=== PATIENT | male | born 1965 | race Caucasian/White ===

== ENCOUNTER → 2016-06-10 | Outpatient (CLI) | payer OTHER ==
[~2016-06-10] MED LIST: AMLO5TAB22 PO; ASPI1TAB69 PO; ASPI81 PO; ATOR20TA42 PO; ATOR40TA16 PO; ERYT.5%O RIGHT EYE; KETO0.5S2 LEFT EYE; PANT40TA3 PO; PRED1SUS LEFT EYE; PROT40TA PO; ZOLO50TA PO
[2016-06-10 07:06] LABS: HEMATOCRIT 41.3 % (39.0-51.0); MEAN CELL VOLUME 85.5 FL (80.0-100.0); MEAN CORPUSCULAR HEMOGLOBIN 29.6 PG (27.0-34.0); MEAN CORPUSCULAR HGB CONC 34.6 % (32.0-36.0); PLATELET COUNT 284 TH/MM3 (150-450); RED BLOOD COUNT 4.83 MIL/MM3 (4.50-5.90); RED CELL DISTRIBUTION WIDTH 14.6 % (11.6-17.2); REVIEW FLAG FINAL; WHITE BLOOD COUNT 8.7 TH/MM3 (4.0-11.0)
[2016-06-10 07:37] LABS: ALT (GPT) 30 U/L (12-78); ANION GAP 7 MEQ/L (5-15); AST (GOT) 17 U/L (15-37); BICARBONATE 25.6 MEQ/L (21.0-32.0); BLOOD UREA NITROGEN 12 MG/DL (7-18); CHLORIDE 108 MEQ/L (98-107); GLOMERULAR FILTRATION RATE 89 ML/MIN (>89); GLUCOSE,FASTING 104 MG/DL (74-99); POTASSIUM 4.2 MEQ/L (3.5-5.1); SODIUM (NA) 141 MEQ/L (136-145)
[2016-06-10 07:39] LABS: ALKALINE PHOSPHATASE 118 U/L (45-117); HDL CHOLESTEROL 32.3 MG/DL (40.0-60.0); LDL CHOLESTEROL 60 MG/DL (0-99); LDL CHOLESTEROL DIRECT 74 MG/DL (0-99); TOTAL BILIRUBIN ADULT 0.3 MG/DL (0.2-1.0)
[2016-06-10 15:52] LABS: HEMOGLOBIN A1b 1.7 %; HEMOGLOBIN Ao 84.7 %; HEMOGLOBIN LA1C 2.1 %; HEMOGLOBIN P3 3.8 %
== END ==
LOC: CLAB 06:40
PROVIDERS: ATTEND Family Medicine
DX: Z51.81 Encounter for therapeutic drug level monitoring (principal); E89.89 Other postprocedural endocrine and metabolic complications and disorders; E78.2 Mixed hyperlipidemia; I10 Essential (primary) hypertension; E13.9 Other specified diabetes mellitus without complications
CPT/HCPCS: 36415; 80053; 80061; 83036; 83721; 85027

== ENCOUNTER → 2016-08-02 | Outpatient (CLI) | payer OTHER ==
[~2016-08-02] MED LIST changes: -AMLO5TAB22 PO; -ASPI81 PO; -ATOR20TA42 PO; -ERYT.5%O RIGHT EYE; -PROT40TA PO
[2016-08-02 10:52] LABS: AUTOMATED NEUTROPHIL # 6.2 TH/MM3 (1.8-7.7); BASOPHIL % 0.5 % (0.0-2.0); EOSINOPHIL # 0.3 TH/MM3 (0-0.4); EOSINOPHIL % 2.9 % (0.0-4.0); HEMATOCRIT 43.5 % (39.0-51.0); HEMO FLAGS DIFF FINAL; LYMPH % 15.9 % (9.0-44.0); LYMPHOCYTE # 1.4 TH/MM3 (1.0-4.8); MEAN CELL VOLUME 85.9 FL (80.0-100.0); MEAN CORPUSCULAR HEMOGLOBIN 28.8 PG (27.0-34.0); MEAN CORPUSCULAR HGB CONC 33.5 % (32.0-36.0); MONO % 10.7 % (0.0-8.0); PLATELET COUNT 269 TH/MM3 (150-450); RED BLOOD COUNT 5.07 MIL/MM3 (4.50-5.90); RED CELL DISTRIBUTION WIDTH 13.1 % (11.6-17.2); WHITE BLOOD COUNT 8.8 TH/MM3 (4.0-11.0)
--- NOTE | 2016-08-04 07:24 | EKG ---
Date Performed: 08/02/2016 Time Performed: 10:48:32 PTAGE: 51 years EKG: Sinus bradycardia rSr'(V1) - probable normal variant Compared to the previous tracing sinus rate has increased Borderline ECG PREVIOUS TRACING : 11/02/2014 14.38 DOCTOR: Rajinder Zamorano Interpretating Date/Time 08/04/2016 07:24:19
== END ==
LOC: PHPRE 09:45
PROVIDERS: ATTEND Ophthalmology
DX: H25.042 Posterior subcapsular polar age-related cataract, left eye (principal); R94.31 Abnormal electrocardiogram [ECG] [EKG]
CPT/HCPCS: 85025; 93005

== ENCOUNTER → 2016-08-25 | Day surgery (SDC) | payer OTHER ==
[~2016-08-25] VITALS: Ht 170.2 cm; Wt 107.0 kg
[~2016-08-25] MED LIST changes: +ACETAMINOPHEN 500 MG CPLT ONE; +CYCLOPENTOLATE HCL 1% OPHT SOLN 2 ML BTL ONE; +FAMOTIDINE 20 MG/2 ML VIAL ONE; +LACTATED RINGER'S 1000 ML INJ 1,000 ML IV ONE; +MIDAZOLAM HCL 2 MG/2 ML VIAL ONE; +NEOSTIGMINE 3 MG/3 ML SYR IV ONE; +ONDANSETRON HCL 4 MG/2 ML VIAL IV PUSH ONE; +PHENYLEPH/NS 1000 MCG/10 ML SYR IV ONE; +PHENYLEPHRINE HCL 10% OPTH SOLN 5 ML BTL ONE; +PROPOFOL 200 MG/20 ML AMP IV ONE; +SODIUM CHLORID 0.9% 500 ML INJ 500 ML ONE; +TETRACAINE 0.5% OPTH SOLN 4 ML BTL LEFT EYE ONE; +TROPICAMIDE 1% OPHT SOLN 15 ML BTL ONE; +ePHEDrine/NS 25 MG/5 ML SYR IV ONE; +fentaNYL CITRATE 250 MCG/5 ML AMP ONE
[2016-08-25 06:35] VITALS: BP 141/88; PULSE 60; RESP 16; TEMP 98; O2SAT 96
[2016-08-25] MEDS: TOBRAMYCIN/DEXAMETHASONE OPTH OINT 3.5 GM TUBE ONE ×2 (08:16→08:44)
[2016-08-25 09:12] VITALS: PULSE 62
--- NOTE | 2016-08-25 09:12 | PD.OP ---
Operative Report Date of Surgery: Aug 25, 2016 Preoperative Diagnosis: (1) Posterior subcapsular age-related cataract of left eye Postoperative Diagnosis: (1) Pseudophakia of left eye Procedure: phacoemulsification and intraocular lens implant left eye Anesthesia: General Surgeon: Asmita Fierro Endocrinology Physician(s): none Operation and Findings: Patient was consented for surgery and taken back to the operating room. He was put under general anesthesia and prepped and draped in the usual sterile fashion for ophthalmic surgery. A wire lid speculum was placed in the left eye. A paracentesis incision was created at the 5 o'clock position on the limbus. Vision blue dye and viscoelastic was injected into the anterior chamber. The main incision was created at the 2 o'clock position on the limbus with a 2.4 mm keratome. A continuous curvilinear capsulorrhexis was made on the anterior lens capsule. Hydrodissection was used to separate the lens nucleus from the capsule. Phacoemulsification was used to remove the lens nucleus material. Irrigation and aspiration was used to remove the remaining cortical material. The lens implant ([id number] SN [id number]) was placed in the capsular bag. Viscoelastic was removed with irrigation and aspiration. The incisions were irrigated and found to be watertight. Tobradex ointment, a patch, and shield were placed on the left eye. The patient was sent to PACU in stable condition. Asmita Fierro MD Aug 25, 2016 09:12
[2016-08-25 09:45] VITALS: PULSE 57; TEMP 98.3
[2016-08-25 10:30] VITALS: BP 90/58; PULSE 54; RESP 16; O2SAT 93
== END | disposition home or self-care (01) ==
LOC: PHSDC 06:13
PROVIDERS: ATTEND Ophthalmology
DX: H25.9 Unspecified age-related cataract (principal); J44.9 Chronic obstructive pulmonary disease, unspecified; E78.5 Hyperlipidemia, unspecified; K21.9 Gastro-esophageal reflux disease without esophagitis
CPT/HCPCS: 00142; 66984; J2250; J2370; J2405; J2710; J3010; J7040; J7120; V2632

== ENCOUNTER → 2016-12-08 | Outpatient (CLI) | payer OTHER ==
[~2016-12-08] MED LIST changes: -ACETAMINOPHEN 500 MG CPLT ONE; -CYCLOPENTOLATE HCL 1% OPHT SOLN 2 ML BTL ONE; -FAMOTIDINE 20 MG/2 ML VIAL ONE; -KETO0.5S2 LEFT EYE; -LACTATED RINGER'S 1000 ML INJ 1,000 ML IV ONE; -MIDAZOLAM HCL 2 MG/2 ML VIAL ONE; -NEOSTIGMINE 3 MG/3 ML SYR IV ONE; -ONDANSETRON HCL 4 MG/2 ML VIAL IV PUSH ONE; -PHENYLEPH/NS 1000 MCG/10 ML SYR IV ONE; -PHENYLEPHRINE HCL 10% OPTH SOLN 5 ML BTL ONE; -PRED1SUS LEFT EYE; -PROPOFOL 200 MG/20 ML AMP IV ONE; -SODIUM CHLORID 0.9% 500 ML INJ 500 ML ONE; -TETRACAINE 0.5% OPTH SOLN 4 ML BTL LEFT EYE ONE; -TROPICAMIDE 1% OPHT SOLN 15 ML BTL ONE; -ePHEDrine/NS 25 MG/5 ML SYR IV ONE; -fentaNYL CITRATE 250 MCG/5 ML AMP ONE
[2016-12-08 07:31] LABS: BLOOD, URINE NEG (NEG); COMMENT (UR) CULT NOT INDICATED; CULTURE IF INDICATED CULT NOT INDICATED; GLUCOSE,URINE NEG (NEG); KETONE, URINE NEG (NEG); MUCUS URINE FEW /lpf (OCC); NITRITE,URINE NEG (NEG); PH, URINE 5.5 (5.0-8.5); URINE COLOR YELLOW (YELLW/STRAW)
[2016-12-08 07:49] LABS: ALT (GPT) 32 U/L (12-78); ANION GAP 8 MEQ/L (5-15); AST (GOT) 19 U/L (15-37); BICARBONATE 23.9 MEQ/L (21.0-32.0); BLOOD UREA NITROGEN 18 MG/DL (7-18); CHLORIDE 108 MEQ/L (98-107); GLOMERULAR FILTRATION RATE 81 ML/MIN (>89); GLUCOSE,FASTING 111 MG/DL (74-99); POTASSIUM 4.2 MEQ/L (3.5-5.1); SODIUM (NA) 140 MEQ/L (136-145)
[2016-12-08 07:51] LABS: ALKALINE PHOSPHATASE 124 U/L (45-117); HDL CHOLESTEROL 23.4 MG/DL (40.0-60.0); LDL CHOLESTEROL 35 MG/DL (0-99); TOTAL BILIRUBIN ADULT 0.2 MG/DL (0.2-1.0)
== END ==
LOC: CLAB 06:50
PROVIDERS: ATTEND Family Medicine
DX: E78.5 Hyperlipidemia, unspecified (principal); Z79.899 Other long term (current) drug therapy
CPT/HCPCS: 36415; 80053; 80061; 81001

== ENCOUNTER → 2017-06-14 | Outpatient (CLI) | payer OTHER ==
[2017-06-14 06:59] LABS: AUTOMATED NEUTROPHIL # 6.8 TH/MM3 (1.8-7.7); BASOPHIL # 0.1 TH/MM3 (0-0.2); BASOPHIL % 0.8 % (0.0-2.0); EOSINOPHIL # 0.3 TH/MM3 (0-0.4); EOSINOPHIL % 2.8 % (0.0-4.0); HEMATOCRIT 41.2 % (39.0-51.0); HEMOGLOBIN 14.4 GM/DL (13.0-17.0); LYMPH % 14.6 % (9.0-44.0); LYMPHOCYTE # 1.4 TH/MM3 (1.0-4.8); MEAN CELL VOLUME 85.8 FL (80.0-100.0); MEAN CORPUSCULAR HGB CONC 34.9 % (32.0-36.0); MEAN PLATELET VOLUME 6.8 FL (7.0-11.0); MONO % 9.4 % (0.0-8.0); MONOCYTE # 0.9 TH/MM3 (0-0.9); NEUT % 72.4 % (16.0-70.0); PLATELET COUNT 294 TH/MM3 (150-450); RED BLOOD COUNT 4.81 MIL/MM3 (4.50-5.90); WHITE BLOOD COUNT 9.4 TH/MM3 (4.0-11.0)
[2017-06-14 07:26] LABS: ALBUMIN 3.7 GM/DL (3.4-5.0); AST (GOT) 19 U/L (15-37); BICARBONATE 25.9 MEQ/L (21.0-32.0); BLOOD UREA NITROGEN 18 MG/DL (7-18); CALCIUM 8.5 MG/DL (8.5-10.1); CHLORIDE 106 MEQ/L (98-107); CREATININE 0.94 MG/DL (0.60-1.30); GLOMERULAR FILTRATION RATE 85 ML/MIN (>89); GLUCOSE,FASTING 113 MG/DL (74-99); SODIUM (NA) 137 MEQ/L (136-145)
[2017-06-14 07:28] LABS: ALT (GPT) 25 U/L (12-78); CHOLESTEROL 145 MG/DL (120-200); TRIGLYCERIDES 228 MG/DL (42-150)
[2017-06-14 07:30] LABS: ALKALINE PHOSPHATASE 112 U/L (45-117); CHOLESTEROL/ HDL RATIO 4.98 RATIO; HDL CHOLESTEROL 29.1 MG/DL (40.0-60.0); LDL CHOLESTEROL 70 MG/DL (0-99); LDL CHOLESTEROL DIRECT 81 MG/DL (0-99); TOTAL BILIRUBIN ADULT 0.4 MG/DL (0.2-1.0); TOTAL PROTEIN 8.2 GM/DL (6.4-8.2)
[2017-06-14 10:41] LABS: HEMOGLOBIN A1C 6.3 % (4.3-6.0)
== END ==
LOC: CLAB 06:37
PROVIDERS: ATTEND Family Medicine
DX: E78.5 Hyperlipidemia, unspecified (principal); I10 Essential (primary) hypertension; R73.09 Other abnormal glucose; Z12.5 Encounter for screening for malignant neoplasm of prostate
CPT/HCPCS: 36415; 80053; 80061; 83036; 83721; 84153; 85025

== ENCOUNTER → 2017-09-30 | Outpatient (CLI) | payer OTHER ==
[2017-09-30 10:53] LABS: BILIRUBIN, URINE NEG (NEG); BLOOD, URINE NEG (NEG); GLUCOSE,URINE NEG (NEG); KETONE, URINE NEG (NEG); MUCUS URINE FEW /lpf (OCC); NITRITE,URINE NEG (NEG); PH, URINE 5.5 (5.0-8.5); URINE COLOR YELLOW (YELLW/STRAW); URINE LEUKOCYTE ESTERASE NEG (NEG)
[2017-09-30 11:12] LABS: ALBUMIN 3.9 GM/DL (3.4-5.0); BICARBONATE 22.7 MEQ/L (21.0-32.0); CALCIUM 8.7 MG/DL (8.5-10.1)
[2017-09-30 11:16] LABS: CREATININE 1.02 MG/DL (0.60-1.30)
[2017-09-30 11:21] LABS: PHOSPHORUS 2.6 MG/DL (2.5-4.9)
[2017-09-30 13:16] LABS: COMPLEMENT C4 27 MG/DL (10-40)
[2017-09-30 22:56] LABS: ALB/GLOB RATIO (SPE) 1.41 (1.39-2.23)
[2017-10-02 23:52] LABS: KAPPA/LAMBDA FREE 1.74 (0.26-1.65)
== END ==
LOC: CLAB 09:33
PROVIDERS: ATTEND Internal Medicine Nephrology
DX: R80.9 Proteinuria, unspecified (principal); N18.1 Chronic kidney disease, stage 1
CPT/HCPCS: 36415; 80069; 81001; 82570; 83883; 84156; 84165; 86038; 86160; 86335; 86803; 87205; 87340

== ENCOUNTER → 2017-10-03 | Outpatient (CLI) | payer OTHER ==
[2017-10-03 09:41] LABS: CREATININE 24 HOUR, URINE 2.38 GM/24HR (0.63-2.50)
== END ==
LOC: CLAB 06:47
PROVIDERS: ATTEND Internal Medicine Nephrology
DX: R80.9 Proteinuria, unspecified (principal); N18.1 Chronic kidney disease, stage 1
CPT/HCPCS: 82570; 84157

== ENCOUNTER → 2017-10-13 | Outpatient (CLI) | payer OTHER ==
[2017-10-13 08:03] LABS: PHOSPHORUS 3.5 MG/DL (2.5-4.9)
[2017-10-13 08:18] LABS: ALBUMIN 3.8 GM/DL (3.4-5.0); BICARBONATE 22.6 MEQ/L (21.0-32.0); CALCIUM 8.7 MG/DL (8.5-10.1); CREATININE 1.07 MG/DL (0.60-1.30)
== END ==
LOC: CLAB 07:18
PROVIDERS: ATTEND Physician Assistant
DX: N18.1 Chronic kidney disease, stage 1 (principal)
CPT/HCPCS: 36415; 80069